=== PATIENT | female | born 1990 | race African-American/Black ===

== ENCOUNTER 2017-01-07 20:28 | Emergency (ER) | payer OTHER ==
[~2017-01-07] VITALS: Ht 162.6 cm; Wt 86.2 kg
--- NOTE | 2017-01-07 21:24 | RADIOLOGY REPORT ---
EXAMINATION: XR ANKLE, RIGHT CLINICAL INFORMATION: Fall. COMPARISON: None TECHNIQUE: AP, lateral, and mortise views of the right ankle. FINDINGS: No acute fracture or dislocation is identified. The ankle mortise is intact. No joint effusion is seen. There is significant lateral ankle soft tissue swelling. IMPRESSION: Moderate lateral ankle soft tissue swelling. No acute osseous abnormality or subluxation.
--- NOTE | 2017-01-07 21:41 | ED ANKLE/FOOT INJURY COMPLAINT ---
History of Present Illness General Chief Complaint: Foot or Ankle Injury Stated Complaint: R ANKLE INJURY Source: patient, old records Exam Limitations: no limitations Vital Signs & Intake/Output Vital Signs & Intake/Output Vital Signs Date Time Temp Pulse Resp B/P Pulse O2 O2 Flow FiO2 Ox Delivery Rate 01/07 2212 88 118/78 01/07 2039 98.5 100 14 125/84 99 Room Air ED Intake and Output 01/08 0000 01/07 1200 Intake Total Output Total Balance Patient 190 lb Weight Allergies Coded Allergies: No Known Allergies (01/07/17) Reconcile Medications Escitalopram Oxalate 10 MG TABLET 1 TAB PO DAILY MENTAL HEALTH (Reported) [MOOD SUPPORT] 1 TAB PO DAILY SUPPLEMENT (Reported) Multivitamin (Multi-Day Vitamins) 1 EACH TABLET 1 TAB PO DAILY SUPPLEMENT ( Reported) Triage Note: PT TO ED FOR R ANKLE PAIN, REPORTS SHE TRIPPED AT HOME. SWELLING NOTED TO LATERAL ASPECT OF R ANKLE, +CMS, REFUSING MOTRIN/TYLENOL IN TRIAGE. ICE PACK APPLIED. Triage Nurses Notes Reviewed? yes Occurred: just prior to arrival Duration: hour(s): (1), constant Timing: recent history Severity: moderate Severity Numbers: 6 Pain/Injury Location: Right: Ankle. Method of Injury: twisted Modifying Factors: Improves With: rest. Worsens With: movement. Associated Symptoms: swelling : No Patient currently breastfeeds: No HPI: 26-year-old female presents to emergency room status post sustaining injury when she twisted her right ankle just prior to arrival now presents complaining of moderate aching pain nonradiating over the lateral malleolus. She denies any foot knee or hip pain she has not taken anything for her symptoms and was declining anything until my evaluation. She denies any numbness or tingling. She's been unable to bear weight on the foot secondary to pain there was no other injury or no modifying factors pain is constant and aching nonradiating (CHARLIE PATRICK) Past History Travel History Traveled to [place] past 21 day No Medical History Any Pertinent Medical History? 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 No (CHARLIE PATRICK) Review of Systems Review of Systems Constitutional: Reports: see HPI. All Other Systems: Reviewed and Negative Comments Review of systems: See HPI, All other systems negative. Constitutional, no chills no fever, no malaise HEENT: no sore throat no congestion Cardiovascular: No chest pain , no palpitation Skin, no rashes, no change in skin Respiratory: No dyspnea no cough no sputum GI: No nausea no vomiting, no diarrhea : No dysuria Muscle skeletal: joint pain, no joint swelling, no back pain, no neck pain, Neurologic: No numbness no headache Psych: No stress Heme/endocrine: No bruising no bleeding Immunology: No lymphadenopathy, (CHARLIE PATRICK) Physical Exam Physical Exam General Appearance: well developed/nourished, no apparent distress, alert, awake Leg/Knee/Thigh Left: normal range of motion Comments: Well-developed well-nourished patient in no apparent distress. HEENT: Atraumatic, extraocular motion intact Neck: Supple, FROM Back: FROM Cardiovascular: Regular rate and rhythms no murmurs Respiratory: No respiratory distress. Patient speaking in full complete sentences. Breath sounds clear to auscultation bilaterally: NO W/R/R Upper Extremities: full range of motion Hip/Pelvis: Atraumatic/Stable. FROM. No pain with pelvic compression Knee: Atraumatic/stable. FROM. No joint swelling, no effusion. No laxity. Negative vivian/anterior drawer test. No pain with ROM Leg: Atraumatic. Nontender. No edema, 5 out of 5 strength in the lower extremity, normal dorsiflexion of great toe bilaterally, gross sensation is intact. Ankle/Foot:Ankle with moderate tenderness laterally over the lateral ligaments. No bony tenderness. No medial tenderness. Range of motion is near full but somewhat limited due to pain. No instability is noted. Skin is intact, moderate swelling over the lateral malleolus no ecchymosis the foot is neurovascularly intact with sensation and motor grossly intact. There is no foot tenderness or fifth metatarsal tenderness. Able to move all toes. Palpable and intact achilles tendon. There is no proximal tib/fib tenderness Pulses: Normal/equal DP/PT pulses bilaterally. Brisk cap refill Neuro: Alert and oriented x3 Skin: Warm & dry;No appreciable rash on exposed skin Psych: Mood affect normal, normal memory normal judgment. (CHARLIE PATRICK) Progress Differential Diagnosis: fracture, dislocation, sprain, contusion, compartmental syndrome Plan of Care: Orders Procedure Date/time Status Durable Medical Equipment 01/07 2151 Active Patient is medicated 100 mg of Motrin on my evaluation, I discussed with her x- ray results need for rice, crutches were provided advised close follow-up and return anytime sooner for symptoms worsened she feels comfortable at this point in answered all her questions (CHARLIE PATRICK) Diagnostic Imaging: Viewed by Me: Radiology Read. Discussed w/RAD: Radiology Read. Radiology Impression: PATIENT: ANN CORONADO PRESENT AGE: 26 PATIENT ACCOUNT NO: [id number] : 92 LOCATION: [facility] ORDERING PHYSICIAN: JOE LAKE DO SERVICE DATE: 01/07/17-2039 EXAM TYPE: RAD - XRY-ANKLE 3 OR MORE VIEWS R EXAMINATION: XR ANKLE, RIGHT CLINICAL INFORMATION: Fall. COMPARISON: None TECHNIQUE: AP, lateral, and mortise views of the right ankle. FINDINGS: No acute fracture or dislocation is identified. The ankle mortise is intact. No joint effusion is seen. There is significant lateral ankle soft tissue swelling. IMPRESSION: Moderate lateral ankle soft tissue swelling. No acute osseous abnormality or subluxation. DICTATED BY: NARENDRA NEVES MD DATE/TIME DICTATED:01/07/172118 RESEARCH ASSISTANT:SYED DATE/TIME TRANSCRIBED:01/07/172118 CONFIDENTIAL, DO NOT COPY WITHOUT APPROPRIATE AUTHORIZATION. <Electronically signed in Other Vendor System> SIGNED BY: NARENDRA NEVES MD 01/07/172123 (CHARLIE PATRICK) Departure Departure Time of Disposition: 2149 Disposition: HOME OR SELF CARE Condition: Stable Clinical Impression Primary Impression: Ankle sprain Referrals: ADE JADE APRN (PCP/Family) Additional Instructions: REST, ICE, KEEP LEG ELEVATED, TYLENOL OR MOTRIN EVERY 4-6 HOURS. CRUTCHES DISCUSSED. Departure Forms: Customer Survey General Discharge Information (CHARLIE PATRICK) PA/ORTHOPEDICS NURSE Co-Sign Statement Statement: ED Attending supervision documentation- [] I saw and evaluated the patient. I have also reviewed all the pertinent lab results and diagnostic results. I agree with the findings and the plan of care as documented in the PA's/ORTHOPEDICS NURSE's documentation. [X] I have reviewed the ED Record and agree with the PA's/ORTHOPEDICS NURSE's documentation. [] Additions or exceptions (if any) to the PAs/ORTHOPEDICS NURSE's note and plan are summarized below: [] (RUSS RANGEL,NARENDRA Smith)
[2017-01-07] MEDS ORDERED: ESCITALOPRAM OX10 MG PO (22:10)
[2017-01-07] MEDS ORDERED: MULTI-DAY VITA1 EACH PO (22:10)
[2017-01-07] MEDS ORDERED: [UNRECOGNIZED DRUG - OTHER] PO (22:11)
[2017-01-07 22:12] VITALS: BP 118/78
== END 2017-01-07 22:12 ==
LOC: ERH 20:28
DX: S93.401A Sprain of unspecified ligament of right ankle, initial encounter (principal); X58.XXXA Exposure to other specified factors, initial encounter
CPT/HCPCS: 73610-RT